=== PATIENT | female | born 1960 | race Caucasian/White ===

== ENCOUNTER → 2016-04-14 | Outpatient (CLI) | payer OTHER ==
[~2016-04-14] MED LIST: ACET-654 PO; AGGR1CAP PO; AMLO5TAB2 PO; ASPI81TA PO; ATOR1TAB18 PO; CIPR500T89 PO; CYCL5TA PO; DEPA500T2 PO; FLOM5CAP PO; IBUP200C PO; KETO10TAB PO; LYRI75CA PO; PANT40TA2 PO; PERC5TAB6 PO; SUMA25TA3 PO; TYLE325T5 PO
--- NOTE | 2016-04-14 20:34 | REP ---
RIGHT FOOT SERIES, COMPLETE: 04/14/2016. Clinical history: Trauma. Four views are provided. No comparison study. Findings. Some soft tissue swelling distal forefoot noted on the lateral view. Subtalar joints intact. Calcaneus without heel spurs and the talonavicular and calcaneocuboid joints intact. Tarsal bones and their articulations are unremarkable. Metatarsals and phalanges show no fracture or focal lesion. No avulsion evident. Accessory ossicle adjacent to the lateral margin of the cuboid. Impression: 1. Negative right foot series for fracture, avulsion or subluxation. Minor soft tissue swelling noted. Signed by Michael Richmond MD 04/15/2016 08:35 A
== END ==
LOC: M WUC 11:17
PROVIDERS: ATTEND Physician Assistant
DX: M79.671 Pain in right foot (principal)

== ENCOUNTER → 2016-05-17 | Outpatient (REF) | payer OTHER | LOC: M LAB REF 15:04 | PROVIDERS: ATTEND Physician Assistant Medical | DX: R50.9 Fever, unspecified (principal) ==

== ENCOUNTER → 2017-01-09 | Outpatient (REF) | payer OTHER ==
[~2017-01-09] MED LIST changes: -ACET-654 PO; +ACET1TAB17 PO; -ATOR1TAB18 PO; +ATOR80TA59 PO; +CIPR-249 PO; -CIPR500T89 PO; -CYCL5TA PO; +CYCL5TAB PO; -IBUP200C PO; +IBUP200C10 PO; +PERC5TAB12 PO; -PERC5TAB6 PO
[2017-01-12 00:06] LABS: Lyme Disease IgG/IgM Antibodie <0.91 ISR (0.00-0.90); Lyme Disease IgM Ab Quantitati <0.80 index (0.00-0.79)
== END ==
LOC: M LAB REF 16:57
PROVIDERS: ATTEND Physician Assistant Medical
DX: R53.83 Other fatigue (principal)

== ENCOUNTER 2017-11-03 08:15 | Day surgery (SDC) | payer OTHER ==
[2017-11-03] MEDS ORDERED: PROPOFOL 500 MG/50 ML VIAL As Ordered (08:21)
[2017-11-03] MEDS ORDERED: LIDOCAINE 2% INJ 100 MG/5 ML SDV (FOR ANES.) As Ordered (08:23)
[2017-11-03] MEDS ORDERED: fentaNYL 100 MCG/2 ML INJECTION (J3010) As Ordered (08:24)
[2017-11-03] MEDS: NS 1,000 ML IV (08:45)
== END 2017-11-03 11:35 | disposition home or self-care (01) ==
LOC: M OPP 08:15
DX: R19.7 Diarrhea, unspecified (principal); D12.5 Benign neoplasm of sigmoid colon; K57.30 Diverticulosis of large intestine without perforation or abscess without bleeding; K64.8 Other hemorrhoids; R10.13 Epigastric pain; K29.70 Gastritis, unspecified, without bleeding; I10 Essential (primary) hypertension; I34.1 Nonrheumatic mitral (valve) prolapse; R00.2 Palpitations; E03.9 Hypothyroidism, unspecified; R11.2 Nausea with vomiting, unspecified; R14.0 Abdominal distension (gaseous); G43.909 Migraine, unspecified, not intractable, without status migrainosus; Z87.442 Personal history of urinary calculi; Z88.5 Allergy status to narcotic agent; Z88.8 Allergy status to other drugs, medicaments and biological substances; Z79.899 Other long term (current) drug therapy; Z80.3 Family history of malignant neoplasm of breast; Z80.0 Family history of malignant neoplasm of digestive organs; Z80.41 Family history of malignant neoplasm of ovary
CPT/HCPCS: 45380

== ENCOUNTER → 2017-12-11 | Outpatient (REF) | payer OTHER ==
[2017-12-11 19:11] LABS: APPEARANCE, URINE HAZY (CLEAR); BACTERIA, URINE AUTO 1+ (NEGATIVE); BILIRUBIN, URINE AUTO NEGATIVE (NEGATIVE); BLOOD, URINE BLOOD 1+ (NEGATIVE); COLOR, URINE YELLOW (YELLOW); GLUCOSE, URINE (UA) AUTO NEGATIVE (NEGATIVE); KETONE, URINE AUTO NEGATIVE (NEGATIVE); LEUKOCYTE ESTERASE, URINE AUTO 3+ (NEGATIVE); MUCUS, URINE SMALL (NEGATIVE); NITRITE, URINE AUTO NEGATIVE (NEGATIVE); PROTEIN, URINE AUTO NEGATIVE (NEGATIVE); RBC, URINE AUTO 14 /HPF (0-3); SPECIFIC GRAVITY URINE AUTO 1.016 (1.002-1.035); SQUAMOUS EPITHELIAL CELL UR AU 3 /HPF (0-6); UROBILINOGEN, URINE AUTO 0.2 mg/dL (0.0-2.0); WBC, URINE AUTO 19 /HPF (0-3)
== END ==
LOC: M LAB REF 17:01
DX: N39.0 Urinary tract infection, site not specified (principal)

== ENCOUNTER → 2017-12-28 | Outpatient (REF) | payer OTHER ==
[2017-12-28 18:26] LABS: AMORPHOUS SEDIMENT SMALL (NEGATIVE); APPEARANCE, URINE CLOUDY (CLEAR); BACTERIA, URINE AUTO 1+ (NEGATIVE); BILIRUBIN, URINE AUTO NEGATIVE (NEGATIVE); BLOOD, URINE BLOOD 1+ (NEGATIVE); COLOR, URINE YELLOW (YELLOW); GLUCOSE, URINE (UA) AUTO NEGATIVE (NEGATIVE); KETONE, URINE AUTO NEGATIVE (NEGATIVE); LEUKOCYTE ESTERASE, URINE AUTO 3+ (NEGATIVE); MUCUS, URINE SMALL (NEGATIVE); NITRITE, URINE AUTO NEGATIVE (NEGATIVE); PROTEIN, URINE AUTO 1+ mg/dL (NEGATIVE); RBC, URINE AUTO 25 /HPF (0-3); SPECIFIC GRAVITY URINE AUTO 1.026 (1.002-1.035); SQUAMOUS EPITHELIAL CELL UR AU 8 /HPF (0-6); WBC, URINE AUTO 54 /HPF (0-3)
== END ==
LOC: M LAB REF 16:52
DX: N39.0 Urinary tract infection, site not specified (principal)

== ENCOUNTER → 2018-01-16 | Outpatient (REF) | payer OTHER ==
[2018-01-16 22:00] LABS: ANION GAP 8 MEQ/L (8-16); BLOOD UREA NITROGEN 15 MG/DL (7-18); CALCIUM LEVEL 9.6 MG/DL (8.5-10.1); CARBON DIOXIDE LEVEL 28 MEQ/L (21-32); CHLORIDE LEVEL 103 MEQ/L (98-107); CREATININE FOR GFR 0.81 MG/DL (0.55-1.30); GLOMERULAR FILTRATION RATE > 60.0 (>51); GLUCOSE, FASTING 82 MG/DL (70-100); POTASSIUM SERUM 4.1 MEQ/L (3.5-5.1); SODIUM LEVEL 139 MEQ/L (136-145)
== END ==
LOC: M LAB REF 16:58
DX: R35.0 Frequency of micturition (principal)

== ENCOUNTER → 2018-01-19 | Outpatient (REF) | payer OTHER | LOC: M SMT 16:53 | DX: R31.29 Other microscopic hematuria (principal) ==

== ENCOUNTER → 2020-10-26 | Outpatient (CLI) | payer BC ==
[~2020-10-26] MED LIST changes: -ACET1TAB17 PO; +ACET1TAB55 PO; +AMLO1TAB24 PO; -AMLO5TAB2 PO; +ASPI81CH32 PO; -ASPI81TA PO; +BYST10TA2 PO; +DRIS50003 PO; +FLOM0.4C39 PO; -FLOM5CAP PO; -IBUP200C10 PO; +IBUP200C25 PO; +LEVO100T54 PO; -PANT40TA2 PO; +PANT40TA29 PO
[2020-10-26 11:48] LABS: HEMOGLOBIN 15.4 g/dl (12.0-15.5); MEAN CORPUSCULAR HEMOGLOBIN 31.1 pg (27.0-33.0); MEAN CORPUSCULAR HGB CONC 33.5 g/dl (32.0-36.5); MEAN CORPUSCULAR VOLUME 92.9 fl (80.0-96.0); PLATELET COUNT, AUTOMATED 256 10^3/uL (150-450); RED BLOOD COUNT 4.95 10^6/uL (4.00-5.40); WHITE BLOOD COUNT 9.1 10^3/uL (4.0-10.0)
[2020-10-26 12:10] LABS: HEMOGLOBIN A1c 4.9 %
[2020-10-26 12:30] LABS: ALBUMIN 3.6 GM/DL (3.2-5.2); ALT/SGPT 50 U/L (12-78); BILIRUBIN,TOTAL 0.5 MG/DL (0.2-1.0); BLOOD UREA NITROGEN 13 MG/DL (7-18); CALCIUM LEVEL 8.8 MG/DL (8.8-10.2); CARBON DIOXIDE LEVEL 26 MEQ/L (21-32); CHLORIDE LEVEL 108 MEQ/L (98-107); CHOLESTEROL LEVEL 234 MG/DL (<200); CHOLESTEROL RISK RATIO 6.324 (<5); CREATININE FOR GFR 0.78 MG/DL (0.55-1.30); GLOMERULAR FILTRATION RATE > 60.0 (>45); GLUCOSE, FASTING 84 MG/DL (70-100); HDL CHOLESTEROL 37 MG/DL (>40); LDL CHOLESTEROL 161 MG/DL (<100); NON-HDL-C 197 MG/DL; POTASSIUM SERUM 4.2 MEQ/L (3.5-5.1); SODIUM LEVEL 140 MEQ/L (136-145); TOTAL 25(OH) VITAMIN D 13.7 NG/ML (30.0-100.0); TOTAL PROTEIN 7.5 GM/DL (6.4-8.2); TRIGLYCERIDES LEVEL 180 MG/DL (<150)
== END ==
LOC: M LAB 10:43
PROVIDERS: ATTEND Family Medicine
DX: I10 Essential (primary) hypertension (principal); R53.83 Other fatigue; E03.9 Hypothyroidism, unspecified

== ENCOUNTER → 2024-07-02 | Outpatient (CLI) | payer BC ==
[~2024-07-02] MED LIST changes: -BYST10TA2 PO; +BYST1TAB3 PO; -CYCL5TAB PO; +CYCL5TAB4 PO
== END ==
LOC: M PLARAD 10:36
PROVIDERS: ATTEND Family Medicine
DX: R91.1 Solitary pulmonary nodule (principal)
CPT/HCPCS: 78815; A9552

== ENCOUNTER → 2024-08-06 | Outpatient (CLI) | payer BC ==
[~2024-08-06] MED LIST changes: -FLOM0.4C39 PO; +LOSA50TA28 PO; +TAMS-18 PO; +VITA1CAP25 PO
[2024-08-06 11:51] LABS: PLATELET COUNT, AUTOMATED 268 10^3/uL (150-450)
[2024-08-06 12:11] LABS: INR 0.93; PARTIAL THROMBOPLASTIN TIME 32.8 SECONDS (24.8-34.2); PROTHROMBIN TIME 12.8 SECONDS (12.5-14.5)
== END ==
LOC: M RAD 11:09
PROVIDERS: ATTEND Internal Medicine Pulmonary Disease
DX: R91.1 Solitary pulmonary nodule (principal)

== ENCOUNTER 2024-08-07 07:24 | Day surgery (SDC) | payer BC ==
[~2024-08-07] VITALS: Ht 152.4 cm; Wt 95.8 kg
[~2024-08-07 07:24] MED LIST changes: +ASPI-731 PO; -ASPI81CH32 PO
[2024-08-07 08:00] LABS: HEMATOCRIT 42.7 % (36.0-47.0); HEMOGLOBIN 14.7 g/dl (12.0-15.5); MEAN CORPUSCULAR HEMOGLOBIN 30.5 pg (27.0-33.0); MEAN CORPUSCULAR HGB CONC 34.4 g/dl (32.0-36.5); MEAN CORPUSCULAR VOLUME 88.6 fl (80.0-96.0); PLATELET COUNT, AUTOMATED 254 10^3/uL (150-450); RED BLOOD COUNT 4.82 10^6/uL (4.00-5.40); WHITE BLOOD COUNT 8.3 10^3/uL (4.0-10.0)
[2024-08-07] MEDS ORDERED: ROCURONIUM BROMIDE 50MG/5ML VIAL As Ordered ONE (08:01)
[2024-08-07] MEDS ORDERED: ONDANSETRON 4MG 2ML VIAL As Ordered ONE (08:01)
[2024-08-07] MEDS ORDERED: LIDOCAINE 2% 100MG/5ML SDV (FOR ANES.) As Ordered ONE (08:01)
[2024-08-07] MEDS ORDERED: propofoL 200 MG/20 ML VIAL As Ordered ONE (08:01)
[2024-08-07] MEDS ORDERED: SUGAMMADEX SODIUM 500 MG/5 ML VIAL As Ordered ONE (08:01)
[2024-08-07] MEDS ORDERED: fentaNYL 100 MCG/2 ML INJECTION As Ordered ONE (08:04)
[2024-08-07] MEDS ORDERED: MIDAZOLAM INJ 2MG/2ML VIAL As Ordered ONE (08:04)
[2024-08-07 08:19] LABS: CALCIUM LEVEL 9.6 MG/DL (8.3-10.6); CREATININE FOR GFR 0.83 MG/DL (0.55-1.30); GLOMERULAR FILTRATION RATE 78.7 (>45); POTASSIUM SERUM 4.2 MMOL/L (3.5-5.1)
[2024-08-07] MEDS: LR 1,000 ML IV SCH (08:45)
[2024-08-07] MEDS ORDERED: ACETAMINOPHEN 1000MG/100ML IV BAG As Ordered ONE (09:33)
[2024-08-07] MEDS ORDERED: fentaNYL 100 MCG/2 ML INJECTION IV PRN (09:55)
[2024-08-07] MEDS ORDERED: oxyCODONE 5MG TAB PO PRN (09:55)
[2024-08-07] MEDS ORDERED: ONDANSETRON 4MG 2ML VIAL IV PRN (09:55)
[2024-08-07] MEDS: THROMBIN 5,000 UNITS VIAL As Ordered ONE (09:57)
[2024-08-07] MEDS: EPINEPHrine 1MG/10ML SYRINGE 1.5IN As Ordered ONE (09:57)
[2024-08-07] MEDS: CETACAINE SPRAY 5GM As Ordered ONE (09:57)
[2024-08-07 11:18] VITALS: BP 171/96; TEMP 97.4; O2SAT 96
== END 2024-08-07 11:28 | disposition home or self-care (01) ==
LOC: M SDC 07:24
PROVIDERS: ATTEND Internal Medicine Pulmonary Disease
DX: D38.1 Neoplasm of uncertain behavior of trachea, bronchus and lung (principal); M19.90 Unspecified osteoarthritis, unspecified site; Z68.36 Body mass index [BMI] 36.0-36.9, adult; Z86.73 Personal history of transient ischemic attack (TIA), and cerebral infarction without residual deficits; I10 Essential (primary) hypertension; Z88.5 Allergy status to narcotic agent; Z88.8 Allergy status to other drugs, medicaments and biological substances; Z88.4 Allergy status to anesthetic agent; Z79.899 Other long term (current) drug therapy
CPT/HCPCS: 31629; 31654; 36415; 80048; 85027; 88173; 88305; 93005; C1601; J0131; J1100; J2250; J2405; J3010